=== PATIENT | female | born 1950 | race Caucasian/White ===

== ENCOUNTER 2017-03-01 16:43 | Emergency (ER) | payer OTHER, MEDICARE ==
[~2017-03-01] VITALS: Ht 160 cm; Wt 65.8 kg
[2017-03-01] MEDS ORDERED: SPIRIVA18 MCG INH (17:28)
[2017-03-01] MEDS ORDERED: SYMBICORT 16010.2 GM INH (17:28)
[2017-03-01] MEDS ORDERED: OTOVEL 0.3%-0.1 EACH OTIC (17:28)
[2017-03-01] MEDS ORDERED: CEFDINIR300 M1 PO (17:28)
[2017-03-01] MEDS ORDERED: ASPIRIN EC81 M1 PO (17:29)
[2017-03-01] MEDS ORDERED: MULTI-DAY VITA1 EACH PO ×2 (17:29→17:31)
[2017-03-01] MEDS ORDERED: VITAMIN E100 UNI2 PO (17:29)
[2017-03-01] MEDS ORDERED: B COMPLETE1 EACH PO (17:30)
[2017-03-01] MEDS ORDERED: PEPCID20 M1 PO (17:30)
[2017-03-01] MEDS ORDERED: ALEVE220 M1 PO (17:30)
--- NOTE | 2017-03-01 17:58 | ED CARDIAC/CP/PALPITATIONS ---
History of Present Illness General Chief Complaint: General Adult Stated Complaint: BILATERAL ARM TINGLING, SHORT OF BREATH Source: patient, old records Exam Limitations: no limitations Vital Signs & Intake/Output Vital Signs & Intake/Output Vital Signs Date Time Temp Pulse Resp B/P Pulse O2 O2 Flow FiO2 Ox Delivery Rate 03/01 1845 164/90 03/01 1842 97.3 67 20 176/85 95 Room Air 03/01 1759 Room Air 03/01 1651 98.4 98 16 155/89 98 Room Air Allergies Coded Allergies: NO KNOWN ALLERGIES (03/01/17) Reconcile Medications Aspirin (Ecotrin*) 81 MG TABLET.DR 1 TAB PO DAILY HEART/BLOOD (Reported) Budesonide/Formoterol Fumarate (Symbicort 160-4.5 Mcg Inhaler) 160 MCG-4.5 MCG/ ACTUATION HFA.AER.AD 2 PUF INH BID COPD (Reported) Cefdinir 300 MG CAPSULE 2 CAP PO DAILY ANTIBIOTIC (Reported) Ciprofloxacin HCl/Fluocinolone (Otovel 0.3%-0.025% Ear Drops) 0.3 %-0.025 % ( 0.25 ML) VIAL 3 DROP OTIC BID RIGHT EAR (Reported) Famotidine (Pepcid) (Unknown Strength) TABLET (Unknown Dose) PO DAILY GI ( Reported) Multivitamin (Multi-Day Vitamins) 1 EACH TABLET 1 TAB PO DAILY SUPPLEMENT ( Reported) Multivitamin (Multi-Day Vitamins) 1 EACH TABLET 1 TAB PO DAILY SUPPLEMENT ( Reported) Naproxen Sodium (Aleve) 220 MG CAPSULE 1 CAP PO DAILY SUPPLEMENT (Reported) Tiotropium Morton (Spiriva) 18 MCG CAP.W.DEV 1 CAP INH PRN COPD (Reported) Vitamin B Complex (B Complete) 1 EACH TABLET 1 TAB PO DAILY SUPPLEMENT ( Reported) Vitamin E Mixed (Vitamin E) (Unknown Strength) TABLET (Unknown Dose) PO DAILY SUPPLEMENT (Reported) Core Measure Meds Pre-Hospital aspirin Triage Note: PT STATES SHE IS HAVING "A WAVE THAT IS GOING OVER HER UPPER BACK AND DOWN HER ARMS". PT STATES SHE DOESNT FEEL RIGHT. PT STARTED TAKING ABX CEFDINIR 300MG DAILY FOR EAR INFECTION AND STATES THAT IS THE ONLY THING DIFFERENT THAT SHE IS TAKING. PT DENIES CHEST PAIN STATES SHE IS HAVING NUMBNESS IN HER ARMS. Triage Nurses Notes Reviewed? yes Onset: Morning Duration: hour(s):, continues in ED, waxing and waning Timing: recent history Quality/Severity: mild, aching Location: substernal Radiation: shoulders, back Activities at Onset: none Prior Chest Pain/Card Workup: no prior chest pain Modifying Factors: Improves With: rest. Nitro Today/Relief: no nitro taken today Aspirin Today: no aspirin today Associated Symptoms: dizziness, weakness LMP (ages 10-50): post menopausal : No Patient currently breastfeeds: No HPI: 1 day prior to admission patient was started on Cefdinir for ear infection. The morning prior to admission she complained of episodic palpitations chest aching radiating to shoulders and back with arm numbness waxing and waning lasting several minutes resolving with rest. She denies fever chills nausea vomiting diarrhea abdominal pain shortness breath headache dysuria rash bleeding. Past History Travel History Traveled to [place] past 21 day No Medical History Any Pertinent Medical History? see below for history Respiratory: COPD Surgical History Surgical History: non-contributory Psychosocial History What is your primary language Latvian Tobacco Use: Quit >30 days ago ETOH Use: occasional use Illicit Drug Use: denies illicit drug use Family History Hx Contributory? No Review of Systems Review of Systems Constitutional: Reports: no symptoms. EENTM: Reports: see HPI, ear pain. Respiratory: Reports: no symptoms. Cardiovascular: Reports: see HPI, chest pain, palpitations. GI: Reports: no symptoms. Genitourinary: Reports: no symptoms. Musculoskeletal: Reports: no symptoms. Skin: Reports: no symptoms. Neurological/Psychological: Reports: see HPI, paresthesia. Hematologic/Endocrine: Reports: no symptoms. Immunologic/Allergic: Reports: no symptoms. All Other Systems: Reviewed and Negative Physical Exam Physical Exam General Appearance: well developed/nourished, alert, awake, anxious, mild distress Head: atraumatic, normal appearance Eyes: Bilateral: normal appearance, PERRL, EOMI. Ears, Nose, Throat: normal pharynx, abnormal Typanic (L) Neck: normal inspection, supple, full range of motion, no midline tenderness Respiratory: normal breath sounds, chest non-tender, no respiratory distress, quiet respiration, lungs clear Cardiovascular: regular rate/rhythm, normal peripheral pulses, norml femoral pulses equa Peripheral Pulses: 4+ carotid (R), 4+ carotid (L) Gastrointestinal: normal bowel sounds, soft, non-tender, no organomegaly Back: normal inspection, normal range of motion Extremities: normal inspection, normal capillary refill Neurologic/Psych: no motor/sensory deficits, awake, alert, oriented x 3, normal gait, normal mood/affect, 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 Skin: intact, normal color, warm/dry Lymphatic: no anterior cervical goran Core Measures ACS in differential dx? No Severe Sepsis Present: No Septic Shock Present: No Progress Differential Diagnosis: AMI, atrial fibrillation, hyperkalemia, hypovolemia, PSVT Plan of Care: Orders Procedure Date/time Status TROPONIN LEVEL 03/01 1742 Complete MAGNESIUM 03/01 1742 Complete COMPREHENSIVE METABOLIC PANEL 03/01 1742 Complete CBC WITHOUT DIFFERENTIAL 03/01 1742 Complete EKG 03/01 164 Active Laboratory Tests 03/01/17 1800: Anion Gap 7, Estimated GFR > 60, BUN/Creatinine Ratio 26.7 H, Glucose 94, Calcium 9.5, Magnesium 2.0, Total Bilirubin 0.5, AST 19, ALT 28, Alkaline Phosphatase 62, Troponin I < 0.01, Total Protein 7.1, Albumin 3.9, Globulin 3.2, Albumin/Globulin Ratio 1.2, CBC w Diff NO MAN DIFF REQ, RBC 4.27, MCV 91.0, MCH 30.1, RDW 14.0, MPV 9.6, Gran % 72.4, Lymphocytes % 15.4 L, Monocytes % 8.4, Eosinophils % 3.3, Basophils % 0.5, Absolute Granulocytes 6.3, Absolute Lymphocytes 1.3, Absolute Monocytes 0.7 H, Absolute Eosinophils 0.3, Absolute Basophils 0, PUBS MCHC 33.1 Initial ED EKG: normal axis, normal intervals, normal p-waves, normal QRS complex, normal sinus rhythm, no ST T wave changes Rhythm Strip: normal sinus rhythm Departure Departure Time of Disposition: 1906 Disposition: HOME OR SELF CARE Condition: Stable Clinical Impression Primary Impression: Palpitations Secondary Impressions: Adverse effects of medication Referrals: MILTON SOARES,NATHALIA Shipley (PCP/Family) Departure Forms: Customer Survey General Discharge Information Critical Care Note Critical Care Note Critical Care Time: non-applicable
[2017-03-01 18:16] LABS: ABSOLUTE BASOPHIL COUNT 0 /CUMM (0.0-0.2); ABSOLUTE EOSINOPHIL COUNT 0.3 /CUMM (0.0-0.7); ABSOLUTE GRANULOCYTE CT 6.3 /CUMM (1.4-6.5); ABSOLUTE LYMPH COUNT 1.3 /CUMM (1.2-3.4); ABSOLUTE MONOCYTE COUNT 0.7 /CUMM (0.10-0.60); BASOPHIL % 0.5 % (0.0-2.0); EOSINOPHIL % 3.3 % (0-5); GRANULOCYTE % 72.4 % (42.2-75.2); HEMATOCRIT 38.9 % (37-47); MEAN CORPUSCULAR HGB 30.1 PG (27.0-31.0); MEAN CORPUSCULAR HGB CONC 33.1 G/DL (33.0-37.0); MEAN PLATELET VOLUME 9.6 FL (7.4-10.4); PLATELET COUNT 295 /CUMM (130-400); RED BLOOD CELL CT 4.27 /CUMM (4.20-5.40); WHITE BLOOD CELL COUNT 8.7 /CUMM (4.8-10.8)
[2017-03-01 18:45] VITALS: BP 164/90
== END 2017-03-01 19:19 ==
LOC: ERH 16:43
PROVIDERS: Emergency Medicine
DX: T36.1X5A Adverse effect of cephalosporins and other beta-lactam antibiotics, initial encounter (principal); R00.2 Palpitations; R20.0 Anesthesia of skin
CPT/HCPCS: 93005; 93010

== ENCOUNTER 2017-12-10 17:34 | Emergency (ER) | payer OTHER ==
[~2017-12-10] VITALS: Ht 160 cm; Wt 65.8 kg
[~2017-12-10 17:34] MED LIST: ALEVE220 M1 PO; ASPIRIN EC81 M1 PO; B COMPLETE1 EACH PO; CEFDINIR300 M1 PO; MULTI-DAY VITA1 EACH PO; OTOVEL 0.3%-0.1 EACH OTIC; PEPCID20 M1 PO; SPIRIVA18 MCG INH; SYMBICORT 16010.2 GM INH; VITAMIN E100 UNI2 PO
--- NOTE | 2017-12-10 18:14 | ED CARDIAC/CP/PALPITATIONS ---
History of Present Illness General Chief Complaint: General Adult Stated Complaint: PT HAS BACK PAIN ,CHEST PAIN Source: patient Exam Limitations: no limitations Vital Signs & Intake/Output Vital Signs & Intake/Output Vital Signs Date Time Temp Pulse Resp B/P B/P Pulse O2 O2 Flow FiO2 Mean Ox Delivery Rate 12/109 97.8 77 18 167/74 99 12/10 1941 97.7 73 18 176/88 98 12/10 1858 Room Air Room Air 12/10 1759 98.6 76 18 173/92 99 Room Air Allergies Coded Allergies: NO KNOWN ALLERGIES (03/01/17) Reconcile Medications Aspirin (Ecotrin*) 81 MG TABLET.DR 1 TAB PO DAILY HEART/BLOOD (Reported) Budesonide/Formoterol Fumarate (Symbicort 160-4.5 Mcg Inhaler) 160 MCG-4.5 MCG/ ACTUATION HFA.AER.AD 2 PUF INH BID COPD (Reported) Naproxen Sodium (Aleve) 220 MG CAPSULE 2 CAP PO DAILY PAIN/INFLAMMATION ( Reported) Triage Note: PT TO ED FOR SUBSCAPULAR PAIN RADIATING DOWN BOTH ARMS AND UP INTO HER NECK, PT STATING SHE WAS OUT SHOPPING AROUND 4PM TODAY AND BEGAN TO GET NAUSEOUS, DIZZY AND THE BACK PAIN BEGAN. Triage Nurses Notes Reviewed? yes Onset: Abrupt Duration: waxing and waning Timing: single episode today Quality/Severity: moderate Location: central Radiation: shoulders Nitro Today/Relief: no nitro taken today Aspirin Today: 81 mg x 1 HPI: Patient is a 67-year-old female with a past medical history of COPD who is a former smoker who presents emergency room stating that last week while walking patient had acute onset of substernal chest tightness dizziness back pain and shoulder pain where she states this symptom lasted approximately a day and a half and did not seek medical care patient states that today while shopping she had acute onset again of chest tightness with radiation to back and shoulders with associated symptoms of nausea and lightheaded sensation Patient took antacid with no relief and a 1 mg of aspirin prior to arrival. Patient states that the symptoms are paroxysmal nature and began approximately 1600 today She is complaining of waxing and waning chest tightness today Denies any fever chills shortness breath cough hemoptysis or leg swelling history of DVT or PE Past History Travel History Traveled to [place] past 21 day No Medical History Any Pertinent Medical History? see below for history Neurological: NONE EENT: NONE Cardiovascular: NONE Respiratory: COPD Gastrointestinal: NONE Hepatic: NONE Renal: NONE Musculoskeletal: NONE Psychiatric: NONE Endocrine: NONE Blood Disorders: NONE Cancer(s): NONE Surgical History Surgical History: non-contributory Psychosocial History What is your primary language Malawian Tobacco Use: Current Not Daily Daily Tobacco Use Amount/Type: =< 4 Cigarettes daily ETOH Use: denies use Illicit Drug Use: denies illicit drug use Family History Hx Contributory? No Review of Systems Review of Systems Constitutional: Reports: no symptoms. EENTM: Reports: no symptoms. Respiratory: Reports: see HPI. Cardiovascular: Reports: see HPI, chest pain. GI: Reports: see HPI. Genitourinary: Reports: no symptoms. Musculoskeletal: Reports: no symptoms. Skin: Reports: no symptoms. Neurological/Psychological: Reports: no symptoms. Hematologic/Endocrine: Reports: no symptoms. Immunologic/Allergic: Reports: no symptoms. All Other Systems: Reviewed and Negative Physical Exam Physical Exam General Appearance: no apparent distress, alert, comfortable Head: atraumatic Eyes: Bilateral: normal appearance, PERRL. Ears, Nose, Throat: normal pharynx, normal ENT inspection Neck: normal inspection, supple Respiratory: normal breath sounds, chest non-tender, no respiratory distress Cardiovascular: regular rate/rhythm Peripheral Pulses: 2+ radial (R) Gastrointestinal: normal bowel sounds, soft, non-tender Extremities: normal inspection, normal capillary refill, normal range of motion, no edema Neurologic/Psych: no motor/sensory deficits, awake, alert, oriented x 3, normal mood/affect Skin: intact, normal color, warm/dry Core Measures ACS in differential dx? Yes CVA/TIA Diagnosis No Sepsis Present: No Sepsis Focused Exam Completed? No Progress Differential Diagnosis: AMI, aortic dissection, atrial fibrillation, cholecystitis, CHF/pulm edema, costochondritis, hyperkalemia, hypovolemia, hyperthyroid, hyperventilation, intracranial hemorrhage, musculoskeletal pain, myocarditis, pancreatitis, pericarditis, pneumonia, pneumothorax, PSVT, pulmonary embolism, PUD/GERD, PVCs/PACs, respiratory failure, sepsis, unstable angina, V-fib/V-Tach, WPW syndrome Plan of Care: Orders Procedure Date/time Status TROPONIN LEVEL 12/10 2300 Complete EKG 12/10 2300 Active Telemetry/Boom Conveyor Operator 12/10 1829 Active TROPONIN LEVEL 12/10 182 Complete D-DIMER 12/10 1828 Complete COMPREHENSIVE METABOLIC PANEL 12/10 1828 Complete CBC WITHOUT DIFFERENTIAL 12/10 1828 Complete EKG 12/10 173 Active Laboratory Tests 12/10/17 2239: Troponin I < 0.01 12/10/17 1848: D-Dimer High Sensitivty < 200 12/10/17 1845: Anion Gap 12, Estimated GFR > 60, BUN/Creatinine Ratio 21.7, Glucose 104 H, Calcium 9.7, Total Bilirubin 0.4, AST 22, ALT 31, Alkaline Phosphatase 67, Troponin I < 0.01, Total Protein 7.6, Albumin 4.4, Globulin 3.2, Albumin/ Globulin Ratio 1.4, CBC w Diff NO MAN DIFF REQ, RBC 4.47, MCV 90.6, MCH 29.4, RDW 13.8, MPV 10.1, Gran % 82.3 H, Lymphocytes % 10.0 L, Monocytes % 5.7, Eosinophils % 1.6, Basophils % 0.4, Absolute Granulocytes 10.2 H, Absolute Lymphocytes 1.2, Absolute Monocytes 0.7 H, Absolute Eosinophils 0.2, Absolute Basophils 0, PUBS MCHC 32.4 L Patient on initial examination was resting currently at bedside and denies any chest pain Patient's initial EKG was unremarkable school lunch monitor placed patient was prophylactically admit start aspirin therapeutic dose Patient will receive second set of troponin if all initial blood work and if continues to be asymptomatic Patient has been eating emergency room for the past 4 hours and has been asymptomatic repeat EKG and troponin was unremarkable upon discharge patient looks well no apparent distress she was strongly advised to follow-up established a thermal cutter helper she will comply patient was given ALL COPIES OF BLOOD work and EKG prior to discharge Diagnostic Imaging: Viewed by Me: Radiology Read. CXR Impression: no acute abnormality, no infiltrates Initial ED EK bpm, NSR Repeat EKG: changed (70 BPM,NSR) Comments: PATIENT: FITZ CARBONE PRESENT AGE: 67 PATIENT ACCOUNT NO: [id number] : 50 LOCATION: [facility] ORDERING PHYSICIAN: Cachorro OLMEDO SERVICE DATE: 12/10/17 EXAM TYPE: RAD - XRY-CHEST XRAY, TWO VIEWS EXAMINATION: XR CHEST CLINICAL INFORMATION: Chest pain COMPARISON: None TECHNIQUE: 2 views of the chest were obtained. FINDINGS: Hazy opacity medial to the right heart border is most likely prominent epicardial fat. Lungs are otherwise well-expanded and clear. No focal consolidation or mass. There is flattening of the diaphragms and hyperinflation of the upper lobes consistent with emphysema. No pleural effusion or pneumothorax. Normal pulmonary vascularity. IMPRESSION: No acute pulmonary disease. Findings suggesting emphysema. Hazy opacity medial to the right heart border is likely a prominent epicardial fat pad. DICTATED BY: Manjeet Rodriguez MD DATE/TIME DICTATED:12/10/172051 CREDIT COMPLIANCE OFFICER:PRANAY Departure Departure Disposition: HOME OR SELF CARE Condition: Stable Clinical Impression Primary Impression: Chest pain Referrals: Eulogio SOARES,Jose G Shipley (PCP/Family) Additional Instructions: As discussed if symptoms worsen or if YOU develop A new concerning symptom return to emergency room, on Tuesday please follow up with primary care doctor and please follow up and establish thermal cutter helper Dr. CRABTREE for further evaluation and treatment. Please provide primary care doctor with copies of blood work and EKG provided to you in the emergency room Departure Forms: Customer Survey General Discharge Information Critical Care Note Critical Care Note Critical Care Time: non-applicable
[2017-12-10] MEDS ORDERED: ALEVE220 M1 PO (18:32)
[2017-12-10 19:06] LABS: ABSOLUTE BASOPHIL COUNT 0 /CUMM (0.0-0.2); ABSOLUTE EOSINOPHIL COUNT 0.2 /CUMM (0.0-0.7); ABSOLUTE GRANULOCYTE CT 10.2 /CUMM (1.4-6.5); ABSOLUTE LYMPH COUNT 1.2 /CUMM (1.2-3.4); ABSOLUTE MONOCYTE COUNT 0.7 /CUMM (0.10-0.60); BASOPHIL % 0.4 % (0.0-2.0); EOSINOPHIL % 1.6 % (0-5); GRANULOCYTE % 82.3 % (42.2-75.2); HEMATOCRIT 40.5 % (37-47); MEAN CORPUSCULAR HGB 29.4 PG (27.0-31.0); MEAN CORPUSCULAR HGB CONC 32.4 G/DL (33.0-37.0); MEAN CORPUSCULAR VOLUME 90.6 FL (81.0-99.0); MEAN PLATELET VOLUME 10.1 FL (7.4-10.4); PLATELET COUNT 338 /CUMM (130-400); RBC DISTRIBUTION WIDTH 13.8 % (11.5-14.5); RED BLOOD CELL CT 4.47 /CUMM (4.20-5.40); WHITE BLOOD CELL COUNT 12.4 /CUMM (4.8-10.8)
--- NOTE | 2017-12-10 20:57 | RADIOLOGY REPORT ---
EXAMINATION: XR CHEST CLINICAL INFORMATION: Chest pain COMPARISON: None TECHNIQUE: 2 views of the chest were obtained. FINDINGS: Hazy opacity medial to the right heart border is most likely prominent epicardial fat. Lungs are otherwise well-expanded and clear. No focal consolidation or mass. There is flattening of the diaphragms and hyperinflation of the upper lobes consistent with emphysema. No pleural effusion or pneumothorax. Normal pulmonary vascularity. IMPRESSION: No acute pulmonary disease. Findings suggesting emphysema. Hazy opacity medial to the right heart border is likely a prominent epicardial fat pad.
[2017-12-10 22:39] VITALS: BP 167/74
== END 2017-12-10 23:35 ==
LOC: ERH 17:34
PROVIDERS: Physician Assistant
DX: R07.89 Other chest pain (principal); M54.9 Dorsalgia, unspecified; R42 Dizziness and giddiness
CPT/HCPCS: 71046; 93005; 93010